=== PATIENT | female | born 1970 | race Two or more races ===

== ENCOUNTER 2020-07-03 13:08 | Inpatient (IN) | payer OTHER ==
[~2020-07-03] VITALS: Ht 149.9 cm; Wt 81.7 kg
[2020-07-03 11:45] VITALS: BP 164/84
--- NOTE | 2020-07-03 11:45 | NUR ---
Patient admitted to room 287A Patient A&Ox4, respirations even and non-labored with no s/s of distress. VS: 164/84, T 97.8, HR 96, RR 18, 97%. Patient denies any pain at this time. Patient has slight right facial drooping with minor slurring of speech. Patient states that she just feels numbness to her face and right extremities. Noted strong bilateral hand [employer] with slight right side delay. Patient was able to push/pull bilateral feet with slight right side delay/weakness. Patient advised to call for assistance with bedpan. Call light within reach. Bed in lowest locked position with 2 side rails up. Will continue to monitor Q1hr and PRN.
[2020-07-03 14:03] LABS: Basophils # (auto) 0.1 10 ^3/uL (0-0.2); Basophils % (auto) 1.2 % (0.0-2.0); Eosinophils # (auto) 0.2 10 ^3/uL (0-0.8); Hematocrit 47.5 % (36.0-46.0); Hemoglobin 15.3 g/dL (12.2-16.2); Lymphocytes # (auto) 2.2 10 ^3/uL (0.4-5.4); Lymphocytes % (auto) 17.7 % (10.0-50.0); Mean Corpuscular Hemoglobin 28.9 pg (28.0-32.0); Mean Corpuscular Hgb Conc. 32.3 g/dL (32.0-36.0); Mean Corpuscular Volume 89.5 fL (80.0-100.0); Monocytes # (auto) 0.8 10 ^3/uL (0-1.3); Monocytes % (auto) 6.7 % (0.0-12.0); Neutrophils # (auto) 8.9 10 ^3/uL (1.6-8.6); Neutrophils % (auto) 72.4 % (37.0-80.0); Platelet Count (auto) 419 10^3/uL (140-450); Red Blood Cells 5.31 10^6/uL (4.0-5.20); Red Cell Distribution Width 15.4 % (11.8-14.3); White Blood Cell 12.3 10^3/uL (4.4-10.8)
[2020-07-03 14:17] LABS: INR 0.98 (0.9-1.15); Partial Thromboplastin Time 28.4 sec (23.0-31.2)
[2020-07-03 14:18] LABS: Albumin 3.4 g/dL (3.4-5.0); Calcium 8.3 mg/dL (8.5-10.1); Potassium 3.4 mmol/L (3.5-5.1)
[2020-07-03 14:21] LABS: BUN/Creatinine Ratio 11.5; Bilirubin, Total 0.2 mg/dL (0.2-1.0); Total Protein 7.1 g/dL (6.4-8.2)
[2020-07-03] MEDS ORDERED: amLODIPine BESYLATE 5 MG TAB PO ONE (15:30)
[2020-07-03] MEDS ORDERED: CLOPIDOGREL BISULFATE 75 MG TAB PO ONE (15:45)
[2020-07-03] MEDS ORDERED: ACETAMINOPHEN 325 MG TAB PO PRN (19:00)
[2020-07-03] MEDS ORDERED: ATORVASTATIN 20 MG TAB PO ONE (19:00)
[2020-07-03] MEDS ORDERED: HYDROcodone-ACET 5/325MG TAB PO PRN (19:00)
[2020-07-03] MEDS ORDERED: NITROGLYCERIN 0.4 MG SL TAB SL PRN (19:00)
[2020-07-03] MEDS ORDERED: hydrALAZINE HCL 20 MG/ML VL IV PRN (19:00)
[2020-07-03] MEDS ORDERED: MORPHINE SULF INJ 2 MG/ML SYRINGE 1ML IV PRN (19:00)
[2020-07-03] MEDS ORDERED: DOCUSATE SOD 100 MG CAP PO PRN (19:00)
[2020-07-03 19:12] LABS: Cholesterol 222 mg/dL (< 200)
[2020-07-03 19:16] LABS: HDL Cholesterol 45 mg/dL (40-59); LDL Cholesterol 169 mg/dL (< 100); Triglycerides 170 mg/dL (< 150)
[2020-07-03] MEDS: CLOPIDOGREL BISULFATE 75 MG TAB PO SCH (21:36)
[2020-07-03] MEDS: hydrALAZINE HCL 20 MG/ML VL IV PRN (22:01)
[2020-07-03 23:18] VITALS: BP 164/84
[2020-07-04 05:00] VITALS: BP 141/89
--- NOTE | 2020-07-04 05:23 | NUR ---
Patient found sitting upright on floor Patient stated that she got up to use the restroom, felt dizzy and sat down on the floor. VS: 84/49, HR 75, 98%, RR 18. Patient was A&Ox4 but had notable right side weakness in upper/lower extremities and hand technician telecommunication systems. VS 20 minutes prior: T 98.0, HR 100, RR 20, 96%, 141/89. Patient was assisted back to the bed without c/o pain. Re-advised patient not to get out of bed and to call for assistance. Patient re-advised that she needed to call for a bedpan. Call light within reach. Bed in lowest locked position with 3 side rails up. Bed alarm in place. Physician notified, given orders for a fluid bolus and reassess BP. Charge and Over Hauler Helper notified. Will continue to monitor.
[2020-07-04 05:24] LABS: Basophils # (auto) 0.1 10 ^3/uL (0-0.2); Basophils % (auto) 0.8 % (0.0-2.0); Eosinophils # (auto) 0.3 10 ^3/uL (0-0.8); Eosinophils % (auto) 2.1 % (0.0-7.0); Hematocrit 46.4 % (36.0-46.0); Hemoglobin 15.2 g/dL (12.2-16.2); Lymphocytes # (auto) 1.8 10 ^3/uL (0.4-5.4); Lymphocytes % (auto) 14.5 % (10.0-50.0); Mean Corpuscular Hemoglobin 29.1 pg (28.0-32.0); Mean Corpuscular Hgb Conc. 32.7 g/dL (32.0-36.0); Mean Corpuscular Volume 88.9 fL (80.0-100.0); Monocytes # (auto) 0.9 10 ^3/uL (0-1.3); Monocytes % (auto) 7.2 % (0.0-12.0); Neutrophils # (auto) 9.2 10 ^3/uL (1.6-8.6); Neutrophils % (auto) 75.4 % (37.0-80.0); Platelet Count (auto) 428 10^3/uL (140-450); Red Blood Cells 5.23 10^6/uL (4.0-5.20); Red Cell Distribution Width 14.9 % (11.8-14.3); White Blood Cell 12.2 10^3/uL (4.4-10.8)
[2020-07-04 05:41] LABS: Albumin 3.2 g/dL (3.4-5.0); Potassium 3.2 mmol/L (3.5-5.1)
[2020-07-04 05:45] LABS: BUN/Creatinine Ratio 12.3; Bilirubin, Total 0.6 mg/dL (0.2-1.0); Total Protein 6.8 g/dL (6.4-8.2)
[2020-07-04] MEDS: InsuLIN REG 1unit/0.01ml Soln (100units/ml) SC SCH ×4 (05:56→18:00)
--- NOTE | 2020-07-04 06:20 | NUR ---
VS Reassessed 151/91, HR 83, RR 18, 97%. Patient A&Ox4. Bolus infused. Will continue to monitor.
[2020-07-04 09:00] VITALS: BP 159/89
--- NOTE | 2020-07-04 09:10 | NUR ---
Off Unit Patient taken to laboratory engineer for SMITA
[2020-07-04] MEDS ORDERED: diphenhdrAMINE HCL 50 MG/1 ML VL IV ONE (09:15)
[2020-07-04] MEDS ORDERED: MIDAZOLAM HCL 1MG/1ML-2 ML VIAL IV ONE (09:15)
[2020-07-04] MEDS ORDERED: fentaNYL CITRATE 100 MCG/2 ML VL IV ONE (09:15)
[2020-07-04] MEDS ORDERED: LIDOCAINE VISCOUS 2% 15ML UD PO ONE (09:15)
[2020-07-04] MEDS ORDERED: ONDANSETRON HCL 4 MG/2 ML VIAL ONE (09:32)
--- NOTE | 2020-07-04 09:43 | NUR ---
SMITA procedure complete. Pt. remains in Cath Lap Pre/Post Op Bed 8. Pt. asleep but arousable with deep and even respirations. Awakens easily and is oriented to person, place and event. Moves all extremities spontaneously. 20G IV on LEFT hand intact with NSS infusing @ 200 ml/hr via infusion pump; site benign. NAD noted.
[2020-07-04] MEDS ORDERED: hydrALAZINE HCL 20 MG/ML VL ONE (09:45)
[2020-07-04] MEDS ORDERED: ENOXAPARIN SOD 40 MG/0.4 ML SYRINGE SC SCH (10:00)
[2020-07-04] MEDS ORDERED: NITROGLYCERIN 0.4 MG SL TAB SL ONE (10:00)
--- NOTE | 2020-07-04 10:00 | NUR ---
Pt. awakens easily. States has mild headache, Dr. Hernandez notified; order received to give pt. NTG SL now. NAD noted; back to sleep with even and deep respirations.
--- NOTE | 2020-07-04 10:43 | NUR ---
Pt. awake and asking to drink water. Instructed re: unable to drink for another hour at least due to effects of oral medication that she took at start of procedure. Pt. verbalized understanding and is compliant. Otherwise denies discomfort. IV converted to NS lock.
--- NOTE | 2020-07-04 11:05 | NUR ---
On Unit Patient brought back to unit after having SMITA done in laborer tree tapping. Patient is awake but drowsy, no complaints at this time. Bed locked in lowest position, bed alarm on for safety. Call light placed within reach and patient encouraged to call for assistance as needed.
--- NOTE | 2020-07-04 11:05 | NUR ---
Pt. stable for transfer back to room via bed, SBAR report given @ bedside to REMBERTO Espino, pt. endorsed to REMBERTO Espino.
[2020-07-04] MEDS ORDERED: LISI-648 PO (11:33)
[2020-07-04] MEDS ORDERED: ASPI81CH43 PO (11:33)
[2020-07-04] MEDS ORDERED: ATOR40TA52 PO (11:33)
[2020-07-04] MEDS: ASPirin 81 mg TAB PO SCH (11:36)
[2020-07-04] MEDS: POTASSIUM CHL 20MEQ/100ML 100 ML IV SCH ×2 (11:36→15:06)
[2020-07-04] MEDS: LISINOPRIL 10 MG TAB PO SCH (11:59)
--- NOTE | 2020-07-04 12:11 | NUR ---
I faxed home health order to [facility].
[2020-07-04 13:00] VITALS: BP 162/92
--- NOTE | 2020-07-04 15:12 | NUR ---
Hospitalist Paged Paged regarding PT evaluation and Carotid Doppler. Awaiting call back
--- NOTE | 2020-07-04 16:54 | NUR ---
SWALLOW EVALUATED. PATIENT HAS LOWER TEETH, UPPER DENTURES. PATIENT ABLE TO TOLERATE MECHANICAL SOFT DIET TEXTURE WITH THIN LIQUIDS WITH NO OVERT SIGNS OR SYMPTOMS OF ASPIRATION. NURSING NOTIFIED.
[2020-07-04 17:00] VITALS: BP 150/84
--- NOTE | 2020-07-04 17:15 | NUR ---
[facility] hospitalist Spoke with Dr. Duran on phone regarding unable to do carotid doppler this pm and PT recommendation for rehab or wheel chair for home use. Patient refusing SNF/rehab.
--- NOTE | 2020-07-04 19:35 | NUR ---
Opening shift note Assumed care of patient. Patient did not want to talk, discuss anything, or be assessed, she just wanted to sleep. Will return to discuss her POC and perform assessment when patient is awake and agrees to be assessed. Bed in lowest locked position with 3 side rails up. Bed alarm on, call light within reach of the patient. Advised patient to call for assistance and not to get out of bed without help. Will continue to monitor.
[2020-07-04 22:11] VITALS: BP 147/80
--- NOTE | 2020-07-04 23:24 | NUR ---
Assisted patient to BSC. Patient voided and assisted back to bed. Bed alarm on, advised patient to call for further assistance or use of BSC.
[2020-07-05] MEDS: InsuLIN REG 1unit/0.01ml Soln (100units/ml) SC SCH ×5 (04:51→23:50)
[2020-07-05 05:00] VITALS: BP 143/88
[2020-07-05 05:56] LABS: Basophils # (auto) 0.1 10 ^3/uL (0-0.2); Basophils % (auto) 0.7 % (0.0-2.0); Eosinophils # (auto) 0.1 10 ^3/uL (0-0.8); Eosinophils % (auto) 1.1 % (0.0-7.0); Hematocrit 45.4 % (36.0-46.0); Hemoglobin 14.6 g/dL (12.2-16.2); Lymphocytes # (auto) 1.7 10 ^3/uL (0.4-5.4); Mean Corpuscular Hgb Conc. 32.3 g/dL (32.0-36.0); Mean Corpuscular Volume 89.9 fL (80.0-100.0); Monocytes # (auto) 0.8 10 ^3/uL (0-1.3); Monocytes % (auto) 6.8 % (0.0-12.0); Neutrophils # (auto) 9.5 10 ^3/uL (1.6-8.6); Neutrophils % (auto) 77.4 % (37.0-80.0); Nucleated Red Blood Cells % 0.1 %; Platelet Count (auto) 388 10^3/uL (140-450); Red Blood Cells 5.05 10^6/uL (4.0-5.20); Red Cell Distribution Width 15.1 % (11.8-14.3); White Blood Cell 12.3 10^3/uL (4.4-10.8)
[2020-07-05 06:23] LABS: Potassium 3.6 mmol/L (3.5-5.1)
[2020-07-05 06:28] LABS: BUN/Creatinine Ratio 13.1; Calcium 7.9 mg/dL (8.5-10.1); Magnesium 2.3 mg/dL (1.6-2.6)
[2020-07-05] MEDS ORDERED: IOHEXOL 350 MG/ML 100ML IJ ONE (06:44)
[2020-07-05 09:00] VITALS: BP 150/97
--- NOTE | 2020-07-05 10:10 | NUR ---
1008 07/05/20 - Faxed to [facility] at [phone] face sheet, order to arrange SNF, H/P, progress notes. Pending review and [facility] case resolution specialist arranging. Addendum: 07/05/20 at 1246 by Lala Rosas [facility] 1240 07/05/20 - Contacted by [facility] case resolution specialist who stated patient needs a COVID-19 test, and she has spoken to Dr Saucedo who is ordering a rapid test, depending on test results patient will be placed appropriately.
[2020-07-05] MEDS: ASPirin 81 mg TAB PO SCH (10:17)
[2020-07-05] MEDS: CLOPIDOGREL BISULFATE 75 MG TAB PO SCH (10:17)
[2020-07-05] MEDS: LISINOPRIL 10 MG TAB PO SCH (10:17)
[2020-07-05 13:00] VITALS: BP 142/94
--- NOTE | 2020-07-05 13:36 | NUR ---
COVID TEST DONE AND TAKEN TO LAB. PER LAB, THE TEST WILL NEED TO BE SENT OUT. DR GOODRICH NOTIFIED VIA TELEPHONE.
--- NOTE | 2020-07-05 13:52 | NUR ---
1350 07/05/20 - Contacted [facility] at [phone], informed case worker Corrie that COVID test had to be sent out of hospital to another lab for completion. Corrie verbalized understanding and stated she would provide an update to [place].
[2020-07-05 17:00] VITALS: BP 150/90
[2020-07-05] MEDS: LORazepam 0.5 MG TAB PO PRN (21:05)
[2020-07-05 21:52] VITALS: BP 174/101
[2020-07-06 05:00] VITALS: BP 156/105
[2020-07-06] MEDS: InsuLIN REG 1unit/0.01ml Soln (100units/ml) SC SCH ×3 (06:00→17:36)
[2020-07-06 06:14] LABS: Calcium 8.4 mg/dL (8.5-10.1); Magnesium 2.3 mg/dL (1.6-2.6); Potassium 3.6 mmol/L (3.5-5.1)
[2020-07-06 06:17] LABS: BUN/Creatinine Ratio 16.3
[2020-07-06 08:37] VITALS: BP 165/108
[2020-07-06] MEDS: LISINOPRIL 10 MG TAB PO SCH (08:55)
[2020-07-06] MEDS: CLOPIDOGREL BISULFATE 75 MG TAB PO SCH (08:55)
[2020-07-06] MEDS: ASPirin 81 mg TAB PO SCH (08:55)
[2020-07-06 13:00] VITALS: BP 167/101
[2020-07-06 16:47] VITALS: BP 159/105
--- NOTE | 2020-07-06 17:44 | NUR ---
AT 1700 RAPID COVID DONE AND TAKEN TO LAB PER DR SANTOS
[2020-07-06] MEDS: LORazepam 0.5 MG TAB PO PRN (18:06)
--- NOTE | 2020-07-06 21:03 | NUR ---
Received call from correctional casework specialist for [facility] regarding patients negative rapid COVID results and placement with [facility] [facility]. Patient to go to room 4A, accepting doctor is Dr. Moreno. Report to be given at [phone].
--- NOTE | 2020-07-06 21:14 | NUR ---
Received second call from Sylvia, case finishing machine adjuster from [facility]. Stated transport will be through [email or web address] and they are unable to transport tonight, will transport at around 12:00 tomorrow. Will pass along to day shift in morning.
[2020-07-06] MEDS: hydrALAZINE HCL 20 MG/ML VL IV PRN (21:51)
--- NOTE | 2020-07-06 22:03 | NUR ---
IV insertion IV access obtained, via clean sterile technique by inserting 20 gauge catheter at right forearm after 1 attempt. IV secured properly. No trauma to site. Patient tolerated well.
[2020-07-06 22:31] VITALS: BP 170/102
[2020-07-06 23:30] VITALS: BP 148/86
[2020-07-07 05:11] VITALS: BP_SYST 100; BP_SYST 138; BP_DIAS 68; BP_DIAS 86
[2020-07-07] MEDS: InsuLIN REG 1unit/0.01ml Soln (100units/ml) SC SCH ×2 (06:30)
[2020-07-07 07:04] LABS: Basophils # (auto) 0.1 10 ^3/uL (0-0.2); Basophils % (auto) 0.6 % (0.0-2.0); Eosinophils # (auto) 0.2 10 ^3/uL (0-0.8); Eosinophils % (auto) 1.5 % (0.0-7.0); Hematocrit 46.3 % (36.0-46.0); Hemoglobin 15.3 g/dL (12.2-16.2); Lymphocytes # (auto) 1.6 10 ^3/uL (0.4-5.4); Lymphocytes % (auto) 12.7 % (10.0-50.0); Mean Corpuscular Hemoglobin 29.4 pg (28.0-32.0); Mean Corpuscular Volume 89.1 fL (80.0-100.0); Monocytes # (auto) 0.9 10 ^3/uL (0-1.3); Monocytes % (auto) 6.9 % (0.0-12.0); Neutrophils % (auto) 78.3 % (37.0-80.0); Nucleated Red Blood Cells % 0.1 %; Platelet Count (auto) 429 10^3/uL (140-450); Red Cell Distribution Width 14.9 % (11.8-14.3); White Blood Cell 12.8 10^3/uL (4.4-10.8)
[2020-07-07 07:27] LABS: Potassium 3.7 mmol/L (3.5-5.1)
[2020-07-07 07:40] LABS: BUN/Creatinine Ratio 15.4; Calcium 8.4 mg/dL (8.5-10.1); Magnesium 2.3 mg/dL (1.6-2.6)
[2020-07-07 09:00] VITALS: BP 145/74
[2020-07-07] MEDS: ASPirin 81 mg TAB PO SCH (09:19)
[2020-07-07] MEDS: LISINOPRIL 10 MG TAB PO SCH (09:20)
[2020-07-07] MEDS: CLOPIDOGREL BISULFATE 75 MG TAB PO SCH (09:20)
[2020-07-07 11:01] VITALS: BP 145/74
--- NOTE | 2020-07-07 11:29 | NUR ---
REPORT CALLED TO VIC, RECEIVING NURSE AT [facility].
--- NOTE | 2020-07-07 12:32 | NUR ---
PT TRANSPORTED TO [facility], LEAVING APPROX. 1215 WITH [facility]. ALL APPROPRIATE PAPERWORK SIGNED, PACKET AND MEDS SENT TO [facility] WITH PT.
== END 2020-07-07 12:13 | DRG 45 ==
LOC: ER 13:08 → TELE 13:09 → TELE-WESTW 23:21
PROVIDERS: ADMIT Hospitalist; ATTEND Hospitalist
PROC: B246ZZ4 Ultrasonography of Right and Left Heart, Transesophageal (ICD-10-PCS; principal; 2020-07-04)
DX: I63.9 Cerebral infarction, unspecified (principal); I16.1 Hypertensive emergency; I10 Essential (primary) hypertension; E87.6 Hypokalemia; E78.5 Hyperlipidemia, unspecified; F10.10 Alcohol abuse, uncomplicated; E66.9 Obesity, unspecified; F17.210 Nicotine dependence, cigarettes, uncomplicated; G81.91 Hemiplegia, unspecified affecting right dominant side; Z68.36 Body mass index [BMI] 36.0-36.9, adult; E03.9 Hypothyroidism, unspecified; Z79.82 Long term (current) use of aspirin; Z79.02 Long term (current) use of antithrombotics/antiplatelets; Z82.49 Family history of ischemic heart disease and other diseases of the circulatory system; Z20.828 Contact with and (suspected) exposure to other viral communicable diseases
CPT/HCPCS: 36415; 70450; 70496; 70498; 71045; 80048; 80053; 80061; 82962; 83036; 83735; 85025; 85610; 85730; 87426; 92610; 93312; 97110; 97116; 97530; 99152; 99291; G0378; J2250; J2405; J3480